=== PATIENT | male | born 1980 | race Caucasian/White ===

== ENCOUNTER 2019-01-11 14:04 | Inpatient (IN) | payer OTHER ==
[~2019-01-11] VITALS: Ht 167.6 cm; Wt 83.3 kg
[~2019-01-11 14:04] MED LIST: AMOX1TAB10 PO; EMPA10TA PO; HYDR-4011 PO; METF-849 PO
[2019-01-11 14:12] VITALS: Ht 167.6 cm; Wt 83.3 kg
[2019-01-11] MEDS ORDERED: ONDANSETRON 4 MG INJ IV STA (14:59)
[2019-01-11] MEDS ORDERED: morphine 2 MG INJ IV STA (14:59)
[2019-01-11] MEDS ORDERED: FAMOTIDINE 20 MG TAB PO STA (14:59)
[2019-01-11] MEDS ORDERED: SOD CHLORIDE 0.9% 1,000 ML IV ONE (16:00)
[2019-01-11] MEDS ORDERED: IOHEXOL 300MG/ML 150 ML BTL ONE (16:19)
[2019-01-11] MEDS ORDERED: SOD CHLORIDE 0.9% 100 ML ONE (16:19)
[2019-01-11] MEDS ORDERED: SODIUM CHLORIDE 0.9% 1L BAG IV* STA (17:03)
[2019-01-11] MEDS ORDERED: PIPER-TAZO 3.375 GM IV (PMX) 100 ML IVPB STA (17:03)
[2019-01-11] MEDS ORDERED: ONDANSETRON 4 MG INJ IV PRN ×2 (18:30→19:30)
[2019-01-11] MEDS ORDERED: ACETAMINOPHEN 325 MG TAB PO PRN (18:30)
[2019-01-11] MEDS ORDERED: GLUCAGON 1 MG INJ IM PRN (19:30)
[2019-01-11] MEDS ORDERED: morphine 4 MG/ML VIAL IV PRN (19:30)
[2019-01-11] MEDS ORDERED: GLUCOSE GEL 15 GRAM TUBE PO PRN ×2 (19:30)
[2019-01-11] MEDS ORDERED: DEXTROSE 50% 50 ML SYRINGE IV PRN ×2 (19:30)
[2019-01-11] MEDS ORDERED: GLUCOSE GEL 15 GRAM TUBE BUCCAL PRN (19:30)
[2019-01-11] MEDS: INSULIN ASPART [NOVOLOG] 3 ML PEN SC SCH (22:04)
[2019-01-11] MEDS: SOD CHLORIDE 0.9% 1,000 ML IV SCH (22:12)
[2019-01-12] VITALS (38 sets, daily range): BP systolic 97–170; BP diastolic 51–104; PULSE 77–143; RESP 13–26
[2019-01-12] MEDS: PIPER-TAZO 3.375 GM IV (PMX) 100 ML IVPB SCH ×4 (02:31→20:29)
[2019-01-12] MEDS: SOD CHLORIDE 0.9% 1,000 ML IV SCH ×3 (05:30→23:48)
[2019-01-12] MEDS ORDERED: BUPIVACAINE 0.25%/EPI (MDV) 50 ML VIAL INJ ONE (07:27)
[2019-01-12] MEDS ORDERED: SEVOFLURANE 15 MIN ONE (07:27)
[2019-01-12] MEDS ORDERED: ROCURONIUM 50 MG INJ ONE (07:27)
[2019-01-12] MEDS ORDERED: PROPOFOL 20 ML ONE (07:27)
[2019-01-12] MEDS: INSULIN ASPART [NOVOLOG] 3 ML PEN SC SCH ×4 (07:30→20:33)
[2019-01-12] MEDS ORDERED: LIDOCAINE 2% (SDV) 5 ML INJ ONE (08:52)
[2019-01-12] MEDS ORDERED: GLYCOPYRROLATE 0.4 MG INJ ONE (08:53)
[2019-01-12] MEDS ORDERED: NEOSTIGMINE 3 MG/3 ML SYRINGE ONE (08:53)
[2019-01-12] MEDS ORDERED: DIPHENHYDRAMINE 50 MG INJ IV PRN (09:00)
[2019-01-12] MEDS ORDERED: METOCLOPRAMIDE 10 MG INJ IV PRN (09:00)
[2019-01-12] MEDS ORDERED: MIDAZOLAM 1 MG/ML 2 ML INJ IV PRN (09:00)
[2019-01-12] MEDS ORDERED: LEVALBUTEROL (NEB) 1.25 MG/0.5 ML AMP HHN PRN (09:00)
[2019-01-12] MEDS ORDERED: EPHEDrine 25 MG/5 ML SYG IV PRN (09:00)
[2019-01-12] MEDS ORDERED: morphine 2 MG INJ IV PRN (09:00)
[2019-01-12] MEDS ORDERED: FENTAnyl 50 MCG/ML VIAL IV PRN ×3 (09:00)
[2019-01-12] MEDS ORDERED: HYDROmorphONE 1 MG/5 ML IV SYRINGE IV PRN ×3 (09:00)
[2019-01-12] MEDS ORDERED: MEPERIDINE 25 MG INJ IV PRN (09:00)
[2019-01-12] MEDS ORDERED: KETOROLAC 30 MG INJ IV PRN (09:00)
[2019-01-12] MEDS ORDERED: ONDANSETRON 4 MG INJ IV PRN ×2 (09:00)
[2019-01-12] MEDS ORDERED: LEVALBUTEROL (NEB) 0.63 MG/3 ML AMP HHN PRN (09:00)
[2019-01-12] MEDS ORDERED: LABETALOL HCL 20MG INJ IV PRN (09:00)
[2019-01-12] MEDS ORDERED: ALBUTEROL 0.083% (NEB) 2.5 MG/3 ML AMP HHN PRN (09:00)
[2019-01-12] MEDS ORDERED: hydrALAzine 20 MG INJ IV PRN (09:00)
[2019-01-12] MEDS ORDERED: SOD CHLORIDE 0.9% 500 ML IV ONE (11:45)
[2019-01-12] MEDS: metFORMIN 500 MG TAB PO SCH ×2 (12:29→18:00)
[2019-01-12] MEDS ORDERED: SOD CHLORIDE 0.9% 1,000 ML IV ONE (13:30)
[2019-01-12] MEDS: ACETAMINOPHEN 325 MG TAB PO PRN ×2 (13:49→20:32)
[2019-01-13] VITALS (9 sets, daily range): BP systolic 98–139; BP diastolic 57–85; PULSE 90–109; RESP 18–22
[2019-01-13] MEDS: PIPER-TAZO 3.375 GM IV (PMX) 100 ML IVPB SCH ×3 (04:56→19:56)
[2019-01-13] MEDS: ACETAMINOPHEN 325 MG TAB PO PRN ×3 (05:03→17:23)
[2019-01-13] MEDS: INSULIN ASPART [NOVOLOG] 3 ML PEN SC SCH ×4 (07:30→20:23)
[2019-01-13] MEDS: EMPAGLIFLOZIN 10 MG TABLET PO SCH (07:46)
[2019-01-13] MEDS: metFORMIN 500 MG TAB PO SCH ×2 (07:46→17:25)
[2019-01-13] MEDS: OXYCODONE/ACETAMINOPHEN (5/325) TAB PO PRN ×3 (07:53→17:24)
[2019-01-13] MEDS ORDERED: BISACODYL (EC) 5 MG TAB PO ONE (10:30)
[2019-01-13] MEDS: SOD CHLORIDE 0.9% 1,000 ML IV SCH ×3 (12:03→23:42)
[2019-01-14 01:44] VITALS: BP 155/96; PULSE 99
[2019-01-14] MEDS: OXYCODONE/ACETAMINOPHEN (5/325) TAB PO PRN (01:49)
[2019-01-14] MEDS: PIPER-TAZO 3.375 GM IV (PMX) 100 ML IVPB SCH ×2 (03:29→12:05)
[2019-01-14] MEDS: SOD CHLORIDE 0.9% 1,000 ML IV SCH (07:30)
[2019-01-14] MEDS: INSULIN ASPART [NOVOLOG] 3 ML PEN SC SCH ×2 (07:30→11:30)
[2019-01-14] MEDS: metFORMIN 500 MG TAB PO SCH (07:42)
[2019-01-14] MEDS: EMPAGLIFLOZIN 10 MG TABLET PO SCH (07:43)
[2019-01-14 08:06] VITALS: BP 158/99; PULSE 88; RESP 20
[2019-01-14 13:30] VITALS: BP 170/101; PULSE 115; RESP 18
== END 2019-01-14 15:25 | disposition home health service (06) | DRG 343 ==
LOC: FTE 14:04 → MS1 18:07
PROVIDERS: ADMIT Internal Medicine; ATTEND Internal Medicine
PROC: 0DTJ4ZZ Resection of Appendix, Percutaneous Endoscopic Approach (ICD-10-PCS; principal; 2019-01-12 07:15)
DX: K35.31 Acute appendicitis with localized peritonitis and gangrene, without perforation (principal); E11.65 Type 2 diabetes mellitus with hyperglycemia; F17.200 Nicotine dependence, unspecified, uncomplicated; R00.0 Tachycardia, unspecified; Z91.11 Patient's noncompliance with dietary regimen; Z91.19 Patient's noncompliance with other medical treatment and regimen
CPT/HCPCS: 36415; 71045; 74177; 80053; 81003; 82962; 83036; 83605; 83690; 85025; 87070; 87075; 88304; 93005; 96361; 96374; 96375; J1815; J2270; J2405; J2543; J2710; J3010; J7030; J7040; Q9967